=== PATIENT | female | born 1985 | race African-American/Black ===

== ENCOUNTER 2017-10-16 20:33 | Emergency (ER) | payer BC ==
[~2017-10-16] VITALS: Ht 160 cm; Wt 63.5 kg
[2017-10-16] MEDS ORDERED: IBUPROFEN 600 MG TABLET PO ONE ×2 (21:02→21:30)
[2017-10-16 21:11] VITALS: BP 123/72
== END 2017-10-16 21:08 | disposition home or self-care (01) ==
LOC: ER 20:33
DX: M54.5 Low back pain (principal); K21.9 Gastro-esophageal reflux disease without esophagitis; Z98.890 Other specified postprocedural states
CPT/HCPCS: 99282; A4606; J7030; Z7610

== ENCOUNTER 2022-04-05 19:21 | Emergency (ER) | payer BC, MEDICAID ==
[~2022-04-05] VITALS: Ht 160 cm; Wt 74.4 kg
[2022-04-05] MEDS ORDERED: diphenhydrAMINE HCL 50 MG/ML VIAL IV ONE (20:30)
[2022-04-05] MEDS ORDERED: IV NS 0.9% 1,000 ML IV ONE (20:30)
[2022-04-05] MEDS ORDERED: methylPREDNISolone SOD SUCC 125 MG/2ML VIAL IV ONE (20:30)
[2022-04-05] MEDS ORDERED: FAMOTIDINE/PF INJ 20 MG/2 ML VIAL IV ONE (20:30)
[2022-04-05] MEDS ORDERED: DIPH25TA62 PO (20:55)
[2022-04-05] MEDS ORDERED: FAMO-131 PO (20:55)
[2022-04-05] MEDS ORDERED: PRED20TA PO (20:55)
[2022-04-05] MEDS ORDERED: predniSONE 20 MG TABLET ONE (20:56)
[2022-04-05] MEDS ORDERED: predniSONE 20 MG TABLET PO ONE (21:00)
--- NOTE | 2022-04-05 21:00 | NUR ---
Patient discharged to home in stable condition. Written and verbal after care instructions given. Patient verbalizes understanding of instruction.
[2022-04-05 21:01] VITALS: BP 110/70
== END 2022-04-05 21:01 | disposition home or self-care (01) ==
LOC: ER 19:24
DX: T78.40XA Allergy, unspecified, initial encounter (principal); Z79.899 Other long term (current) drug therapy; X58.XXXA Exposure to other specified factors, initial encounter
CPT/HCPCS: 99283; J7512

== ENCOUNTER 2023-01-10 00:46 | Emergency (ER) | payer MEDICAID ==
[~2023-01-10] VITALS: Ht 157.5 cm; Wt 74.4 kg
[~2023-01-10 00:46] MED LIST: DIPH25TA62 PO; FAMO-131 PO; PRED20TA PO
--- NOTE | 2023-01-10 01:41 | NUR ---
URINE COLLECTED AND SENT TO LAB
--- NOTE | 2023-01-10 01:42 | NUR ---
BIBFRIEND FROM HOME C/O LOWER BACK, PELVIC, AND L THIGH PAIN X4 DAYS, WAS SEEN AT [facility] ON TUESDAY AM, WAS NOT ABLE TO FILL RX. PATIENT PLACED COMFORTABLY IN BED, VITALS CHECKED.
--- NOTE | 2023-01-10 01:45 | NUR ---
DR DENISE JEFFERSON AT PT'S BEDSIDE FOR EVAL
[2023-01-10] MEDS ORDERED: DEXAMETHASONE SOD PHOSPHATE 4 MG/ML VIAL IV ONE (02:00)
[2023-01-10] MEDS ORDERED: CARISOPRODOL 350 MG TABLET PO ONE (02:00)
[2023-01-10] MEDS ORDERED: MORPHINE SULFATE INJ 2 MG/ML DISP.SYRIN IM ONE (02:00)
--- NOTE | 2023-01-10 02:16 | NUR ---
20GA ESTABLISHED TO [facility] FOR IV MED
[2023-01-10] MEDS ORDERED: MORPHINE SULFATE INJ 4 MG/ML DISP.SYRIN ONE (02:19)
[2023-01-10] MEDS ORDERED: CARISOPRODOL 350 MG TABLET ONE (02:20)
[2023-01-10] MEDS ORDERED: DEXAMETHASONE SOD PHOSPHATE 10 MG/ML VIAL ONE (02:20)
--- NOTE | 2023-01-10 02:20 | NUR ---
WAIVER SIGNED BY PT
--- NOTE | 2023-01-10 02:51 | NUR ---
TO CT, ACCOMPANIED BY TECH
--- NOTE | 2023-01-10 03:08 | NUR ---
PT RETURNED TO ER BED [address]
--- NOTE | 2023-01-10 03:10 | NUR ---
RETURNED FROM CT, PT IN NAD, APPEARS TO BE RESTING COMFORTABLY
[2023-01-10] MEDS ORDERED: IBUP-1957 PO (06:49)
[2023-01-10] MEDS ORDERED: HYDR-3980 PO (06:49)
--- NOTE | 2023-01-10 06:57 | NUR ---
Patient discharged to home in stable condition. Written and verbal after care instructions given. Patient verbalizes understanding of instruction. IV removed. Catheter intact and site benign. Pressure and 4x4 applied to site. No bleeding noted.
[2023-01-10 07:05] VITALS: BP 118/79
== END 2023-01-10 07:06 | disposition home or self-care (01) ==
LOC: ER 00:48
DX: M54.32 Sciatica, left side (principal); K21.9 Gastro-esophageal reflux disease without esophagitis
CPT/HCPCS: 99285; 72131; 96372; J1100; J2270